=== PATIENT | male | born 1940 | race Caucasian/White ===

== ENCOUNTER 2018-11-09 07:58 | Emergency (ER) | payer OTHER ==
[~2018-11-09] VITALS: Ht 167.6 cm; Wt 65.8 kg
[2018-11-09] MEDS ORDERED: CARVEDILOL6.25 MG (08:12)
[2018-11-09] MEDS ORDERED: VASOTEC10 MG (08:12)
[2018-11-09] MEDS ORDERED: TRAMADOL HCL50 MG (08:12)
[2018-11-09] MEDS ORDERED: TAMSULOSIN HCL0.4 MG (08:13)
[2018-11-09] MEDS ORDERED: GABAPENTIN800 MG (08:13)
== END 2018-11-09 15:46 | disposition home or self-care (01) ==
LOC: ER 07:58
DX: J45.998 Other asthma (principal); J11.1 Influenza due to unidentified influenza virus with other respiratory manifestations

== ENCOUNTER 2021-03-29 09:33 | Outpatient (CLI) | payer OTHER ==
[~2021-03-29 09:33] MED LIST: CARVEDILOL6.25 MG; GABAPENTIN800 MG; TAMSULOSIN HCL0.4 MG; TRAMADOL HCL50 MG; VASOTEC10 MG
== END 2021-03-29 09:38 | disposition home or self-care (01) ==
LOC: TOM 09:33
PROVIDERS: ATTEND Specialist
DX: K63.89 Other specified diseases of intestine (principal); K57.90 Diverticulosis of intestine, part unspecified, without perforation or abscess without bleeding

== ENCOUNTER → 2021-03-31 08:00 | Outpatient (CLI) | payer OTHER ==
[~2021-03-31] VITALS: Ht 170.2 cm; Wt 65.8 kg
[~2021-03-31 08:00] MED LIST changes: +AMOX-CLAV 875-1 EACH PO; +COLACE100 MG PO; +DIAZEPAM5 MG PO; +MEDROLPACK PO; +NEURONTIN800 MG PO; +PERCOCET 5-3251 EACH PO
== END | disposition home or self-care (01) ==
LOC: LAB 08:00 → SURH 04-07 07:45 → EDSTATUS 04-07 07:45 → SURH 04-07 16:45
PROVIDERS: ATTEND Orthopaedic Surgery Orthopaedic Surgery of the Spine
DX: Z03.818 Encounter for observation for suspected exposure to other biological agents ruled out (principal); M41.56 Other secondary scoliosis, lumbar region; M48.062 Spinal stenosis, lumbar region with neurogenic claudication; Z20.828 Contact with and (suspected) exposure to other viral communicable diseases; I10 Essential (primary) hypertension

== ENCOUNTER 2021-05-09 08:00 | Inpatient (IN) | payer OTHER ==
[~2021-05-09] VITALS: Ht 170.2 cm; Wt 61.2 kg
[~2021-05-09 08:00] MED LIST changes: -AMOX-CLAV 875-1 EACH PO; -COLACE100 MG PO; -DIAZEPAM5 MG PO; -MEDROLPACK PO; -NEURONTIN800 MG PO; -PERCOCET 5-3251 EACH PO
[2021-05-12] MEDS ORDERED: PERCOCET 5-3251 EACH PO (07:30)
[2021-05-12] MEDS ORDERED: MEDROLPACK PO (07:30)
[2021-05-12] MEDS ORDERED: AMOX-CLAV 875-1 EACH PO (07:30)
[2021-05-12] MEDS ORDERED: DIAZEPAM5 MG PO (07:30)
[2021-05-12] MEDS ORDERED: NEURONTIN800 MG PO (07:30)
[2021-05-12] MEDS ORDERED: COLACE100 MG PO (07:30)
== END 2021-05-13 13:10 | disposition home health service (06) | DRG 455 ==
LOC: O/R 05-12 04:43 → PED 05-12 04:43 → SURH 05-12 07:00 → PED 05-12 12:09
PROVIDERS: ADMIT Orthopaedic Surgery Orthopaedic Surgery of the Spine; ATTEND Orthopaedic Surgery Orthopaedic Surgery of the Spine
PROC: 0SG10J1 Fusion of 2 or more Lumbar Vertebral Joints with Synthetic Substitute, Posterior Approach, Posterior Column, Open Approach (ICD-10-PCS; 2021-05-12)
PROC: 07DR0ZZ Extraction of Iliac Bone Marrow, Open Approach (ICD-10-PCS; 2021-05-12)
PROC: 0SG10A0 Fusion of 2 or more Lumbar Vertebral Joints with Interbody Fusion Device, Anterior Approach, Anterior Column, Open Approach (ICD-10-PCS; principal; 2021-05-12 07:00)
DX: M41.56 Other secondary scoliosis, lumbar region (principal); M48.062 Spinal stenosis, lumbar region with neurogenic claudication

== ENCOUNTER 2022-03-31 10:45 | Inpatient (IN) | payer OTHER ==
[~2022-03-31] VITALS: Ht 167.6 cm; Wt 61.2 kg
[~2022-03-31 10:45] MED LIST changes: +AMOX-CLAV 875-1 EACH PO; +COLACE100 MG PO; +DIAZEPAM5 MG PO; +MEDROLPACK PO; +NEURONTIN800 MG PO; +PERCOCET 5-3251 EACH PO
[2022-04-03] MEDS ORDERED: OMEPRAZOLE20 MG (08:25)
[2022-04-03] MEDS ORDERED: KETOCONAZOLE15 GM (08:25)
[2022-04-03] MEDS ORDERED: FOLIC ACID1 MG (08:25)
[2022-04-03] MEDS ORDERED: AMOX-CLAV 875-1 EACH PO (10:20)
[2022-04-03] MEDS ORDERED: MEDROLPACK PO (10:20)
[2022-04-03] MEDS ORDERED: NEURONTIN800 MG PO (10:20)
[2022-04-03] MEDS ORDERED: COLACE100 MG PO (10:20)
[2022-04-03] MEDS ORDERED: PERCOCET 5-3251 EACH PO (10:20)
== END 2022-04-04 17:03 | disposition home or self-care (01) | DRG 517 ==
LOC: O/R 04-03 05:18 → SURG 04-03 10:45 → PED 04-03 14:26 → SURG 04-03 14:30 → PED 04-04 17:03
PROVIDERS: ADMIT Orthopaedic Surgery Orthopaedic Surgery of the Spine; ATTEND Orthopaedic Surgery Orthopaedic Surgery of the Spine
PROC: 01NB0ZZ Release Lumbar Nerve, Open Approach (ICD-10-PCS; 2022-04-03)
PROC: 0QU007Z Supplement Lumbar Vertebra with Autologous Tissue Substitute, Open Approach (ICD-10-PCS; 2022-04-03)
PROC: 07DR0ZZ Extraction of Iliac Bone Marrow, Open Approach (ICD-10-PCS; 2022-04-03)
PROC: 0QB00ZZ Excision of Lumbar Vertebra, Open Approach (ICD-10-PCS; principal; 2022-04-03 14:30)
DX: M48.061 Spinal stenosis, lumbar region without neurogenic claudication (principal); M54.16 Radiculopathy, lumbar region

== ENCOUNTER 2022-05-16 10:26 | Emergency (ER) | payer OTHER ==
[~2022-05-16] VITALS: Ht 170.2 cm; Wt 60.3 kg
[~2022-05-16 10:26] MED LIST changes: +FOLIC ACID1 MG; +KETOCONAZOLE15 GM; +OMEPRAZOLE20 MG
[2022-05-16] MEDS ORDERED: KETO10TA2 PO (14:25)
== END 2022-05-16 14:47 | disposition home or self-care (01) ==
LOC: ER 10:26
DX: S49.92XA Unspecified injury of left shoulder and upper arm, initial encounter (principal); S79.912A Unspecified injury of left hip, initial encounter; W18.30XA Fall on same level, unspecified, initial encounter; Y93.9 Activity, unspecified; Y92.019 Unspecified place in single-family (private) house as the place of occurrence of the external cause; S59.902A Unspecified injury of left elbow, initial encounter